=== PATIENT | female | born 1955 | race Caucasian/White ===

== ENCOUNTER 2016-07-31 05:53 | Day surgery (SDC) | payer OTHER ==
[2016-07-28 11:39] VITALS: BMI 36.0
--- NOTE | 2016-07-30 21:08 | HPN ---
Date/Time of Note Date/Time of Note DATE: 07/30/16 TIME: 21:08 Interval H&P Admission Note Pt. seen H&P reviewed: No system changes MAYO SZYMANSKI MD Jul 30, 2016 21:08
[~2016-07-31] VITALS: Ht 162.6 cm; Wt 96.5 kg
[2016-07-31] VITALS (10 sets, daily range): BP systolic 138–162; BP diastolic 47–74; PULSE 58–74; RESP 15–20; Ht 162.6 cm; Wt 96.5 kg
[2016-07-31] MEDS ORDERED: LIDOCAINE 1% (MPF) 30 ML INJ ONE (08:09)
[2016-07-31] MEDS ORDERED: BUPIVACAINE 0.5% (SDV) 30 ML INJ ONE (08:09)
[2016-07-31] MEDS ORDERED: PROPOFOL 20 ML ONE (08:12)
[2016-07-31] MEDS ORDERED: MIDAZOLAM 1 MG/ML 2 ML INJ ONE (08:12)
[2016-07-31] MEDS ORDERED: LIDOCAINE 2% (SDV) 5 ML INJ ONE (08:12)
--- NOTE | 2016-07-31 08:12 | HPN ---
Date/Time of Note Date/Time of Note DATE: 07/31/16 TIME: 08:12 Interval H&P Admission Note Pt. seen H&P reviewed: No system changes MAYO SZYMANSKI MD Jul 31, 2016 08:12
--- NOTE | 2016-07-31 08:18 | OPR ---
Date/Time of Note Date/Time of Note DATE: 07/31/16 TIME: 08:15 Operative Report Procedure Date: Jul 31, 2016 Preoperative Diagnosis volar ganglion cyst right wrist Postoperative Diagnosis same Operation Performed arthrotomy capsulotomy Surgeon: MAYO SZYMANSKI MD Anesthesia: MAC Anesthesiologist: BROOKS ATKINSON MD Estimated Blood Loss: none Complications: None Pt Condition Post Procedure: stable MAYO SZYMANSKI MD Jul 31, 2016 08:17
[2016-07-31] MEDS ORDERED: METOCLOPRAMIDE 10 MG INJ ONE (08:22)
[2016-07-31] MEDS ORDERED: ONDANSETRON 4 MG INJ ONE (08:22)
[2016-07-31] MEDS ORDERED: DEXAMETHASONE 4 MG/ML 1 ML INJ ONE (08:22)
[2016-07-31] MEDS ORDERED: CEFAZOLIN 1 GM INJ ONE (08:24)
[2016-07-31] MEDS ORDERED: FENTAnyl 50 MCG/ML VIAL ONE (08:38)
[2016-07-31] MEDS ORDERED: FENTAnyl 50 MCG/ML VIAL IV PRN (09:30)
[2016-07-31] MEDS ORDERED: ONDANSETRON 4 MG INJ IV PRN (09:30)
[2016-07-31] MEDS ORDERED: HYDROmorphONE (0.2 MG/ML) 10ML SYG IV PRN (09:30)
--- NOTE | 2016-07-31 11:00 | OPR ---
DATE OF OPERATION: 07/31/2016 SURGEON: Mayo Waddell MD COVER MACHINE OPERATOR: Staff. TECHNICAL SPEC: Татьяна Weiner MD ANESTHESIA TECHNIQUE: Sedation by the anesthesiologist, local anesthetic by the surgeon, regional anesthetic by the surgeon. PREOPERATIVE DIAGNOSIS: Volar ganglion cyst, right wrist. POSTOPERATIVE DIAGNOSIS: Volar ganglion cyst, right wrist. OPERATION PERFORMED: Evacuation of cyst, volar capsule arthrotomy and capsulotomy. SURGICAL PAUSE: I examined the patient in the preop holding area, I malena in the planned surgical incision with a marking pen. I showed the planned, marked surgical incision to the patient. I confirmed the operative procedure and plan with the patient awake. INFORMED CONSENT: At the time we scheduled the operative procedure in the office we discussed with the patient the risks and hazards of surgery, mentioning OP mortality, wound infection, good results, bad results, potential complications, nerve injury, stiffness and anything that we could think of that would detail the risks of the procedure, so the patient was adequately informed. At the end of that conversation that we had, the patient sign a note. The note is one note for everybody, it is meant to document that we held a conversation. DESCRIPTION OF PROCEDURE: The patient was taken to surgery, anesthetized as described above, sterile prep and drape performed. A longitudinal incision was made over the volar aspect flexor carpi radialis from where the cyst came , we exposed the flexor tendon sheath, retracted the tendon, exposed the cyst and evacuated it, exposed the volar capsule from which it took origin. With a knife and then cautery. we excised the volar capsule, cauterized the edges. I deflated the tourniquet, obtained hemostasis with cautery. Reinflated the tourniquet, we closed the wound very loosely with interrupted Vicryl Rapide suture and a bulky cotton dressing applied. DISCHARGE MEDICATIONS: 1. Hydrocodone with acetaminophen. 2. Keflex. FOLLOWUP: Will be in our office in a week. The operative procedure was a half hour. Dictated By: MAYO EPPERSON/PALLAVI Conf#: [id number] DID#: [id number]
== END 2016-07-31 10:37 | disposition home or self-care (01) ==
LOC: SDS 05:53
PROVIDERS: ATTEND Orthopaedic Surgery Hand Surgery
DX: M67.431 Ganglion, right wrist (principal); E66.9 Obesity, unspecified; Z68.36 Body mass index [BMI] 36.0-36.9, adult
CPT/HCPCS: 25111; 88304; J0690; J1100; J2250; J2405; J2765; J3010; Z7512; Z7610